=== PATIENT | male | born 1950 | race Caucasian/White ===

== ENCOUNTER → 2016-09-26 | Outpatient (CLI) | payer OTHER ==
[~2016-09-26] MED LIST: ASPEC81 PO; ATOR-24 PO; BETH10TA2 PO; CARB25TA12 PO; CHOL100010 PO; CYAN500S5 PO; FLNIN NAE; FLV1 PO; FRRS300 PO; MORP1INJ INJ; NRN600 PO; PRLSR20 PO; RANI300T2 PO; SNG10 PO; TIZA4CAP PO; VGR50 PO
--- NOTE | 2016-09-26 14:37 | DIAGNOSTIC IMAGING REPORT ---
THORACIC SPINE 3 VIEWS ROUTINE CLINICAL HISTORY: Persistent back pain. Post laminectomy. COMPARISON STUDY: Thoracic spine radiographs January 18, 2016. FINDINGS: Note is made of vertebral augmentations at the T9, T12 and L1 levels. Vertebral body height loss at these levels is similar to exam of January 18, 2016. Disc space narrowing at T7-T8 with apparent resection of the left eighth rib is again noted. No acute thoracic spine fracture or subluxation is present. The appearance is unchanged. IMPRESSION: 1. No acute thoracic spine fracture or subluxation. 2. No significant change since exam of January 18, 2016 status post T9, T12 and L1 vertebral augmentations. Electronically signed by: Mars Dlae M.D. 09/26/2016 2:35 PM Dictated Date/Time: 09/26/2016 2:33 PM
--- NOTE | 2016-09-26 14:56 | DIAGNOSTIC IMAGING REPORT ---
L-SPINE FLEX/EXT BENDING MIN 6 CLINICAL HISTORY: POST LAMINECTOMY pain COMPARISON STUDY: 07/27/2015 FINDINGS: Interval revision of the patient's laminectomy. There is evidence for laminectomy and fusion at L3-L4 with fixation hardware. Pre-existing laminectomy and fusion at L4-L5 is noted. No evidence for subluxation with the patient in flexion or extension. Evidence for vertebral plasties at T12 and L1. No evidence for compression deformity. IMPRESSION: Postoperative change as described. No evidence for subluxation with the patient in flexion or extension. Electronically signed by: Joesph Handy M.D. 09/26/2016 2:54 PM Dictated Date/Time: 09/26/2016 2:52 PM
--- NOTE | 2016-09-30 09:18 | CODING QUERY NO DIAGNOSIS ---
: 1950 TREATMENT RENDERED WITHOUT A DIAGNOSIS To promote full compliance with coding requirements relating to patient care, physician participation is requested in all cases of hcc coders uncertainty. Please assist us with providing a diagnosis/symptom for the test(s) below: A diagnosis/symptom was not documented on your Order. A valid diagnosis/symptom is required to bill all insurances. Please remember that we are unable to code a diagnosis of rule out, probable, possible, questionable, or suspected. Tests that require a diagnosis: DOS: 09/26/16 * Lumbar Spine X-ray DIAGNOSIS: * Thoracic Spine X-ray DIAGNOSIS: Provider Signature: Date: Thank you Kinsey Morrison Health Information Management Once completed, please kindly fax back to [phone] For questions please call [phone]
== END | disposition home or self-care (01) ==
LOC: C.RADBC 14:09
PROVIDERS: ATTEND Physician Assistant
DX: M54.5 Low back pain (principal); M54.16 Radiculopathy, lumbar region

== ENCOUNTER → 2016-11-11 | Outpatient (CLI) | payer OTHER ==
--- NOTE | 2016-11-11 13:21 | DIAGNOSTIC IMAGING REPORT ---
THORACIC SPINE COMBO CLINICAL HISTORY: THORACIC RADICULAR PAIN,LUMBAR POST-LAMINECTOMY COMPARISON STUDY: Conventional radiographic study dated 09/26/2016 FINDINGS: Imaging was performed before and after the administration of 9 cc of intravenous Gadavist. There are no areas of marrow replacement viewed as suspicious for metastatic disease. There is evidence of prior vertebral plasties the T9 T12 and L1 levels. There is partial fusion of the T7-T8 vertebra. No intrinsic thoracic cord lesions are visualized. No disc herniations are visualized. There is no spinal stenosis. There are no pathologically enhancing lesions. There are postsurgical changes the T8 level with evidence of a left-sided rib resection IMPRESSION: 1. No disc herniations identified 2. No intrinsic cord lesions identified 3. No evidence of pathologic enhancement 4. No evidence of spinal stenosis 5. Postsurgical change Electronically signed by: Bayron Davey M.D. 11/11/2016 1:20 PM Dictated Date/Time: 11/11/2016 1:12 PM
== END | disposition home or self-care (01) ==
LOC: C.MRIBC 11:47
PROVIDERS: ATTEND Anesthesiology
DX: M54.14 Radiculopathy, thoracic region (principal)

== ENCOUNTER → 2016-11-25 | Outpatient (CLI) | payer OTHER ==
[~2016-11-25] MED LIST changes: +GADAVIST IV PRN
--- NOTE | 2016-11-25 14:04 | DIAGNOSTIC IMAGING REPORT ---
MRI LUMBAR SPINE COMBINATION CLINICAL HISTORY: Low back pain. Post laminectomy syndrome. TECHNIQUE: Sagittal and axial T1, T2 and STIR images were obtained. COMPARISON STUDY: 08/04/2015 OBSERVATIONS: Post vertebroplasty marrow changes are present the T12 and L1 levels. There are no areas of marrow replacement viewed as suspicious for metastatic disease. L1-2: No disc protrusions or extrusions. No evidence of spinal canal or neural foraminal compromise. L2-3: No disc protrusions or extrusions. No evidence of spinal canal or neural foraminal compromise. L3-4: There are L3 and L4 pedicle screws. There are postsurgical changes of a discectomy and interbody fusion.. There is no evidence of significant spinal or foraminal stenosis. There is extensive postsurgical epidural fibrosis on the left and posteriorly L4-5: There are postsurgical changes of a posterior laminectomy, discectomy, interbody fusion.. There is a mild disc bulge.. There is no significant spinal or foraminal stenosis L5-S1: No disc protrusions or extrusions. No evidence of spinal canal or neural foraminal compromise. The conus medullaris and cauda equina appear normal. IMPRESSION: 1. Interval removal of the spinal fusion hardware at the L4-5 level. 2. Interval discectomy at the L3-4 level with evidence of posterior pedicle screw fusion 3. No evidence of recurrent disc herniation. No evidence of spinal stenosis 4. Interval development of extensive postsurgical epidural fibrosis at the L3-4 level. Electronically signed by: Bayron Davey M.D. 11/25/2016 2:02 PM Dictated Date/Time: 11/25/2016 1:48 PM
== END | disposition home or self-care (01) ==
LOC: C.MRIBC 12:30
PROVIDERS: ATTEND Anesthesiology
DX: M54.5 Low back pain (principal); M96.1 Postlaminectomy syndrome, not elsewhere classified

== ENCOUNTER 2017-06-25 09:51 | Inpatient (IN) | payer OTHER ==
[2017-06-12 14:43] VITALS: BMI 32.0
--- NOTE | 2017-06-12 15:28 | PAT Medication Instructions ---
Service Date Jun 12, 2017. Current Home Medication List Aspirin Enteric Coated (Ecotrin Or Generic *), 81 MG PO QPM Atorvastatin (Lipitor), 40 MG PO HS Bethanechol Chloride (Bethanechol Chloride), 10 MG PO QID Carbidopa/Levodopa (Sinemet 25MG/100MG), 1.5 TAB PO QID Cholecalciferol (Vitamin D), 1,000 INTER.UNIT PO NOON Cyanocobalamin (Vitamin B-12), 1 MG PO QPM Ferrous Sulfate (Iron Supplement *), 325 MG PO QAM Folic Acid (Folvite *), 1 MG PO NOON Gabapentin (Neurontin *), 1.5 TAB PO QID Montelukast (Singulair *), 10 MG PO HS Morphine Sulfate (Morphine Sulfate), 1 DOSE INJ UD Omeprazole (Prilosec), 20 MG PO BID Ranitidine (Zantac), 300 MG PO HS Tizanidine (Zanaflex), 4 MG PO TID PRN for Muscle Spasms Medication Instructions For Your Scheduled Surgery - Hold the following medications per your surgeon's instructions: Aspirin Enteric Coated (Ecotrin Or Generic *), 81 MG PO QPM - Continue as directed: Morphine Sulfate (Morphine Sulfate), 1 DOSE INJ UD - Hold the following medications the morning of surgery: Tizanidine (Zanaflex), 4 MG PO TID PRN for Muscle Spasms Ferrous Sulfate (Iron Supplement *), 325 MG PO QAM Folic Acid (Folvite *), 1 MG PO NOON Cholecalciferol (Vitamin D), 1,000 INTER.UNIT PO NOON - Take the following medications the morning of surgery with a sip of water: Carbidopa/Levodopa (Sinemet 25MG/100MG), 1.5 TAB PO QID Omeprazole (Prilosec), 20 MG PO BID Gabapentin (Neurontin *), 1.5 TAB PO QID - Take the following medications as scheduled the night before surgery: Tizanidine (Zanaflex), 4 MG PO TID PRN for Muscle Spasms (if needed) Atorvastatin (Lipitor), 40 MG PO HS Carbidopa/Levodopa (Sinemet 25MG/100MG), 1.5 TAB PO QID Ranitidine (Zantac), 300 MG PO HS Cyanocobalamin (Vitamin B-12), 1 MG PO QPM Omeprazole (Prilosec), 20 MG PO BID Gabapentin (Neurontin *), 1.5 TAB PO QID Montelukast (Singulair *), 10 MG PO HS If you have any questions please call us at [phone] or [phone] or [phone]
[2017-06-12 16:16] LABS: BASO % 0.2 %; BASO ABS # 0.01 K/uL (0-0.2); COMPLETE YES; HEMATOCRIT 36.6 % (42-52); LYMPH % 23.1 %; LYMPH ABS # 1.41 K/uL (1.2-3.4); MEAN CELL VOLUME 92.9 fL (80-100); MEAN CORPUSCULAR HEMOGLOBIN 30.7 pg (25-34); MEAN CORPUSCULAR HGB CONC 33.1 g/dl (32-36); MEAN PLATELET VOLUME 10.8 fL (7.4-10.4); MONO % 8.5 %; NEUT % 67.2 %; PLATELET COUNT 185 K/uL (130-400); RED BLOOD COUNT 3.94 M/uL (4.7-6.1)
[2017-06-12 16:25] LABS: BUN/CREATININE RATIO 21.8 (10-20); CALCIUM 9.2 mg/dl (8.5-10.1); CREATININE 1.3 mg/dl (0.60-1.40); POTASSIUM 4.5 mmol/L (3.5-5.1)
--- NOTE | 2017-06-12 16:25 | DIAGNOSTIC IMAGING REPORT ---
CHEST PREADMISSION(PA/LAT) CLINICAL HISTORY: Preoperative chest COMPARISON STUDY: No previous studies for comparison. FINDINGS: The cardiac and mediastinal contours are normal. There is no evidence of focal pulmonary consolidation. There is no evidence of failure. No pleural effusions are visualized.[ There are surgical clips in the left paraspinal region. There is evidence for multiple prior vertebroplasties. IMPRESSION: No active disease in the chest. Electronically signed by: Bayron Davey M.D. 06/12/2017 4:24 PM Dictated Date/Time: 06/12/2017 4:23 PM
[2017-06-12 16:28] LABS: URINE APPEARANCE CLEAR (CLEAR); URINE BILIRUBIN NEG (NEG); URINE COLOR DK YELLOW; URINE NITRITE NEG (NEG); URINE SPECIFIC GRAVITY 1.034 (1.000-1.030); UROBILINOGEN NEG (NEG); ZZUR CULT IF INDIC CLEAN CATCH NO
[2017-06-12 16:29] LABS: MANUAL MICROSCOPIC REQUIRED? NO; REVIEW REQ? NO
[2017-06-25] VITALS (8 sets, daily range): BP systolic 120–174; BP diastolic 68–90; PULSE 66–81; TEMP 36.5–36.8; O2SAT 94–100; Ht 170.2 cm; Wt 94.6 kg
[~2017-06-25] VITALS: Ht 170.2 cm; Wt 94.6 kg
[~2017-06-25 09:51] MED LIST changes: +ATROPINE SULFATE 0.1 MG/ML 5ML SYR IV PRN; -BETH10TA2 PO; +CEFAZOLIN 2000 MG/60 ML D5W IV SCH; +EpHEDrine SULFATE INJ 50 MG/ML AMP IV PRN; +FENTANYL CITRATE INJ 50 MCG/1 ML 2 ML VIAL IV PRN; -FLNIN NAE; -GADAVIST IV PRN; +LACTATED RINGER'S 1000ML 1,000 ML IV SCH; +ONDANSETRON INJ 2 MG/ML 2 ML VIAL IV PRN; -VGR50 PO
--- NOTE | 2017-06-25 11:51 | History & Physical Bridge Note ---
H&P Re-Evaluation Bridge Note: I have examined the patient, reviewed the History & Physical and in the interval since the performance of the History & Physical I have noted the following changes of clinical significance: No changes noted
--- NOTE | 2017-06-25 11:52 | History and Physical ---
History & Physical Date Jun 25, 2017. Chief Complaint Chronic back and leg pain History of Present Illness The patient is a 66 year old male with complaints of chronic back and leg pain Past Medical/Surgical History Medical Problems: (1) HNP (herniated nucleus pulposus), lumbar Additional History Hepatic Disease: No Endocrine Disorder: No Kidney Disease: No Hypertension: No Heart Disease: No Bleeding Tendencies: No Infectious Diseases: No Allergies Coded Allergies: Oxybutynin (Verified Allergy, Severe, THROAT SWELLING, 06/25/17) Tetracycline (Verified Allergy, Severe, THROAT SWELLING, 06/25/17) Amoxicillin (Verified Adverse Reaction, Mild, NAUSEATED, 06/25/17) Clavulanic Acid (Verified Adverse Reaction, Mild, NAUSEA, 06/25/17) Home Medications Scheduled Aspirin Enteric Coated (Ecotrin Or Generic *), 81 MG PO QPM Atorvastatin (Lipitor), 40 MG PO HS Carbidopa/Levodopa (Sinemet 25MG/100MG), 1.5 TAB PO QID Cholecalciferol (Vitamin D), 1,000 INTER.UNIT PO NOON Cyanocobalamin (Vitamin B-12), 1 MG PO QPM Ferrous Sulfate (Iron Supplement *), 325 MG PO QAM Folic Acid (Folvite *), 1 MG PO NOON Gabapentin (Neurontin *), 1.5 TAB PO QID Montelukast (Singulair *), 10 MG PO HS Morphine Sulfate (Morphine Sulfate), 1 DOSE INJ UD Omeprazole (Prilosec), 20 MG PO BID Ranitidine (Zantac), 300 MG PO HS Scheduled PRN Tizanidine (Zanaflex), 4 MG PO TID PRN for Muscle Spasms Physical Examination Skin: warm/dry, no rash Eyes: normal inspection, EOMI, sclerae normal ENT: normal ENT inspection, pharynx normal Head: normocephalic, atraumatic Neck: supple, no adenopathy, trachea midline Respiratory/Chest: lungs clear, normal breath sounds, no respiratory distress Cardiovascular: regular rate, rhythm, no edema, no murmur Abdomen / GI: normal bowel sounds, non tender Back: normal inspection Extremities: normal inspection, normal range of motion Neurologic/Psych: no motor/sensory deficits, alert, normal reflexes, oriented x 3 Diagnosis Chronic back and leg pain Plan of Treatment Spinal cord stimulator trial
[2017-06-25] MEDS ORDERED: MIDAZOLAM HCL 1 MG/ML 2ML VIAL ONE (11:53)
[2017-06-25] MEDS ORDERED: FENTANYL CITRATE INJ 50 MCG/1 ML 2 ML VIAL ONE ×2 (11:53→14:00)
[2017-06-25] MEDS ORDERED: BACITRACIN 50000 UNIT VIAL ONE (12:10)
[2017-06-25] MEDS ORDERED: BUPIVACAINE/EPINEPHRINE 0.5% MPF 1:200,000 30 ML VIAL ONE (12:10)
[2017-06-25] MEDS ORDERED: EpHEDrine SULFATE INJ 50 MG/ML AMP ONE (13:02)
[2017-06-25] MEDS ORDERED: GLYCOPYRROLATE INJ 0.2 MG/ML VIAL ONE (13:15)
[2017-06-25] MEDS ORDERED: NEOSTIGMINE METHYLSULFATE 1 MG/ML 10ML VIAL ONE (13:15)
[2017-06-25] MEDS ORDERED: PROPOFOL IV EMULSION 10 MG/ML 20 ML VIAL IV ONE (13:15)
[2017-06-25] MEDS ORDERED: LIDOCAINE HCL 2% 2 ML VIAL (20MG/ML) ONE (13:15)
[2017-06-25] MEDS ORDERED: HYDROmorphone INJ 2 MG/ML SYR/VIAL ONE (13:16)
--- NOTE | 2017-06-25 13:24 | [facility] Operative Report ---
Operative Report Operative Date Jun 25, 2017. Pre-Operative Diagnosis Chronic back and leg pain Post-Operative Diagnosis Chronic back and leg pain Procedure(s) Performed #1 T10 laminotomy. #2 implantation of 16-lead dorsal column stimulator paddle with attachment to external leads. Surgeon Dr. Lewis Ayala Ice Cream Dispenser Surgeon(s) Bronwyn Carcamo PA-C Findings None Specimens none per surgeon Description of Procedure Patient was met with preoperatively case discussed all questions are dressed. That point patient was taken back to the operative suite after undergoing intubation placed in a prone position the Josh table top Fabricio frame all bony promises well-padded eyes inspected to ensure no external pressure placed upon them. This point the thoracal lumbar spine was prepped and draped in the normal sterile fashion. The assistance of fluoroscopy identified the T10-T11 interlaminar space. Sharp dissection with the assistance of Bovie cautery was performed onto an exposing this region. Self-retaining retractors placed. Then performed a midline laminotomy of T10. This large enough to place the paddle lead proximally. We placed it between the T9 and T10 spaces. It was centered perfectly. We then attached external leads and with the trocar placed into the left flank. They were tested and determined to be operational. Subsequently incision site was copiously irrigated and closed with 1 Vicryl in the fascia 2-0 Vicryl subcutaneously for Monocryl for final skin closure Steri- Strip sterile dressing placed. Patient we can take PACU stable condition. Please note Bronwyn William was present at the entire procedure involved in patient positioning complex portions of the surgery and final skin closure. I attest to the content of the Intraoperative Record and any orders documented therein. Any exceptions are noted below.
[2017-06-25] MEDS ORDERED: METOCLOPRAMIDE HCL INJ 5 MG/ML 2 ML VIAL IV PRN (13:30)
[2017-06-25] MEDS ORDERED: ACETAMINOPHEN IV 100 ML IV PRN (13:30)
[2017-06-25] MEDS ORDERED: BISACODYL 10 MG SUPP PR PRN (13:30)
[2017-06-25] MEDS ORDERED: DO NOT ADMINISTER FLU VACCINE PRN ×3 (13:30)
[2017-06-25] MEDS ORDERED: NALOXONE HCL 0.4 MG/1 ML VIAL/CARP IV PRN (13:30)
[2017-06-25] MEDS ORDERED: hydrOXYzine HCL 25 MG TAB PO PRN (13:30)
[2017-06-25] MEDS ORDERED: LORAZEPAM INJ 0.5 MG in SYRINGE 0 ML IV PRN (13:30)
[2017-06-25] MEDS ORDERED: SOD PHOSPHATE/SOD BIPHOSPHATE ENEMA 132 ML BTL PR PRN (13:30)
[2017-06-25] MEDS ORDERED: PROMETHAZINE HCL INJ 12.5 MG in SODIUM CHLORIDE 0.9% 50ML 50 ML IV PRN (13:30)
[2017-06-25] MEDS ORDERED: FAMOTIDINE 20 MG TAB PO PRN (13:30)
[2017-06-25] MEDS ORDERED: DO NOT ADMINISTER PNEUMOCOCCAL VACCINE PRN ×2 (13:30)
[2017-06-25] MEDS ORDERED: ONDANSETRON INJ 2 MG/ML 2 ML VIAL IV PRN (13:30)
[2017-06-25] MEDS ORDERED: DC PCA PRN (13:30)
[2017-06-25] MEDS ORDERED: MAGNESIUM HYDROXIDE SUSP 30 ML UDC PO PRN (13:30)
[2017-06-25] MEDS ORDERED: LORAZEPAM 0.5 MG TAB PO PRN (13:30)
[2017-06-25] MEDS ORDERED: ACETAMINOPHEN 500 MG TAB PO PRN (13:30)
[2017-06-25] MEDS ORDERED: ALUMINUM/MAGNESIUM SUSP 30 ML UDC PO PRN (13:30)
--- NOTE | 2017-06-25 13:35 | DIAGNOSTIC IMAGING REPORT ---
LUMBAR SPINE, INTRAOPERATIVE FLUOROSCOPY HISTORY: Spinal cord stimulator placement. FLUOROSCOPY TIME: 6 seconds. FINDINGS: Intraoperative fluoroscopy was provided for the lumbar spine. A single fluoroscopic spot image of the lower thoracic spine demonstrates multiple vertebroplasty within the lower thoracic and upper lumbar spine as well as a spinal stimulator device. The leads terminate at the expected location of the T9 vertebral body. IMPRESSION: Fluoroscopy provided for a spinal cord stimulator placement. Electronically signed by: Adam Del Angel M.D. 06/25/2017 1:34 PM Dictated Date/Time: 06/25/2017 1:33 PM
[2017-06-25] MEDS ORDERED: DEXAMETHASONE SOD INJ 4 MG/ML VIAL ONE (13:38)
[2017-06-25] MEDS ORDERED: EpHEDrine SULFATE 50MG/5ML SYR ONE (13:38)
[2017-06-25] MEDS ORDERED: ONDANSETRON INJ 2 MG/ML 2 ML VIAL ONE (13:38)
[2017-06-25] MEDS ORDERED: CARBIDOPA/LEVODOPA 25/100MG TAB PO ONE (14:00)
--- NOTE | 2017-06-25 14:10 | Anesthesiology Progress Note ---
Anesthesia Post Op Note Date & Time Jun 25, 2017 at 14:08 Vital Signs Pain Intensity: 6 Vital Signs Past 12 Hours Date Time Temp Pulse Resp B/P (MAP) Pulse Ox O2 Delivery O2 Flow Rate FiO2 06/25/17 13:50 81 16 151/75 99 Oxymask 8 06/25/17 13:40 81 16 164/71 99 Oxymask 8 06/25/17 13:31 36.4 86 16 148/71 100 Oxymask 8 06/25/17 10:30 36.7 74 18 174/81 97 Room Air Notes Mental Status: alert / awake / arousable, participated in evaluation Pt Amnestic to Procedure: Yes Nausea / Vomiting: adequately controlled Pain: adequately controlled Airway Patency, RR, SpO2: stable & adequate BP & HR: stable & adequate Hydration State: stable & adequate Anesthetic Complications: no major complications apparent Anesthetic Complications: pt to get next dose of sinemet prior to leaving PACU
[2017-06-25] MEDS ORDERED: HYDROmorphone INJ 1 MG/ML SYR IV PRN (16:30)
[2017-06-25] MEDS: LACTATED RINGER'S 1000ML 1,000 ML IV SCH ×2 (16:55→17:59)
[2017-06-25] MEDS: DEXAMETHASONE INJ 6 MG in SYRINGE 0 ML IV SCH ×2 (17:03→23:12)
[2017-06-25] MEDS: CARBIDOPA/LEVODOPA 25/100MG TAB PO SCH ×2 (17:20→22:00)
[2017-06-25] MEDS: GABAPENTIN 600 MG TAB PO SCH ×2 (17:20→22:01)
[2017-06-25] MEDS: CEFAZOLIN IV 2,000 MG in DEXTROSE 5% 50ML 50 ML IV SCH (19:56)
[2017-06-25] MEDS: OXYCODONE HCL IR 5 MG TAB (IMMEDIATE RELEASE) PO PRN (20:17)
[2017-06-25] MEDS: RANITIDINE HCL 150 MG TAB PO SCH (22:01)
[2017-06-25] MEDS: MONTELUKAST SOD 10 MG TAB PO SCH (22:01)
[2017-06-25] MEDS: PANTOprazole SOD 40 MG TAB PO SCH (22:02)
[2017-06-25] MEDS: ASPIRIN 81 MG ECTAB PO SCH (22:02)
[2017-06-25] MEDS: DOCUSATE SODIUM/SENNA 50/8.6MG TAB PO SCH (22:02)
[2017-06-25] MEDS: ATORVASTATIN 20 MG TAB PO SCH (22:02)
[2017-06-26] MEDS: OXYCODONE HCL IR 5 MG TAB (IMMEDIATE RELEASE) PO PRN ×4 (00:43→20:50)
[2017-06-26] MEDS: LACTATED RINGER'S 1000ML 1,000 ML IV SCH (01:31)
[2017-06-26 03:35] VITALS: BP 111/68; PULSE 60; TEMP 36.8; O2SAT 98
[2017-06-26] MEDS: CEFAZOLIN IV 2,000 MG in DEXTROSE 5% 50ML 50 ML IV SCH (03:39)
[2017-06-26] MEDS ORDERED: OXYCODONE HCL IR 5 MG TAB (IMMEDIATE RELEASE) PO PRN (06:00)
[2017-06-26] MEDS ORDERED: NURSING VERBAL MED ORDER ONE (06:00)
[2017-06-26 06:09] LABS: COMPLETE YES; HEMATOCRIT 33.9 % (42-52); IG% 0.3 %; LYMPH % 6.1 %; LYMPH ABS # 0.58 K/uL (1.2-3.4); MEAN CELL VOLUME 91.6 fL (80-100); MEAN CORPUSCULAR HEMOGLOBIN 30.3 pg (25-34); MEAN PLATELET VOLUME 10.6 fL (7.4-10.4); MONO % 3.5 %; NEUT % 90.1 %; PLATELET COUNT 180 K/uL (130-400); WHITE BLOOD COUNT 9.53 K/uL (4.8-10.8)
[2017-06-26] MEDS: DEXAMETHASONE INJ 6 MG in SYRINGE 0 ML IV SCH (06:34)
[2017-06-26 06:39] LABS: BUN/CREATININE RATIO 11.4 (10-20); CALCIUM 9.1 mg/dl (8.5-10.1); CREATININE 1.5 mg/dl (0.60-1.40); POTASSIUM 4.1 mmol/L (3.5-5.1)
[2017-06-26 06:52] VITALS: BP 134/72; PULSE 61; TEMP 36.9; O2SAT 97
[2017-06-26] MEDS: GABAPENTIN 600 MG TAB PO SCH ×4 (08:51→20:51)
[2017-06-26] MEDS: FERROUS SULFATE 325 MG TAB PO SCH (08:51)
[2017-06-26] MEDS: CARBIDOPA/LEVODOPA 25/100MG TAB PO SCH ×4 (08:52→20:52)
[2017-06-26] MEDS: PANTOprazole SOD 40 MG TAB PO SCH ×2 (08:52→20:51)
--- NOTE | 2017-06-26 09:00 | Progress Note ---
Progress Note Date of Service Jun 26, 2017. Progress Note Patient's pain is well-controlled. He noted significant improvement of his leg pain with the stimulator in place. At this time we will plan for nothing by mouth after midnight in permanent placement of stimulator tomorrow.
--- NOTE | 2017-06-26 10:37 | Anesthesiology Progress Note ---
Anesthesia Post Op Note Date & Time Jun 26, 2017 at 10:36 Vital Signs Pain Intensity: 7.0 Vital Signs Past 12 Hours Date Time Temp Pulse Resp B/P (MAP) Pulse Ox O2 Delivery O2 Flow Rate FiO2 06/26/17 08:15 Room Air 06/26/17 06:52 36.9 61 18 134/72 (92) 97 06/26/17 03:35 36.8 60 16 111/68 (82) 98 Room Air 06/25/17 23:50 BiPAP 3.5 06/25/17 22:44 36.6 68 16 120/68 (85) 94 Room Air Notes Mental Status: alert / awake / arousable, participated in evaluation Pt Amnestic to Procedure: Yes Nausea / Vomiting: adequately controlled Pain: adequately controlled Airway Patency, RR, SpO2: stable & adequate BP & HR: stable & adequate Hydration State: stable & adequate Anesthetic Complications: no major complications apparent
[2017-06-26 11:25] VITALS: BP 125/69; PULSE 57; TEMP 36.8; O2SAT 96
--- NOTE | 2017-06-26 12:36 | Anesthesiology Progress Note ---
Anesthesia Progress Note Date of Service Jun 26, 2017. Progress Notes The patient is a 66 y/o male scheduled for spinal cord stimulator implant tomorrow with Dr. Ayala. He had the same procedure on 06/25/17 for failed back syndrome. A Glidescope #3 was used with a good view. He was easy to mask ventilate. He had previously had a Glidescope #4 and was a more difficult view. The patient does have a residual sore throat from the intubation. He otherwise tolerated the procedure well. Other PMH includes sleep apnea on BiPap , HTN, dyslipidemia, Prinzmetal's angina, GERD, arthritis, mild creatinine elevation, anemia, urinary incontinence, and obesity. Significant labs from today are a hgb of 11.2 and Cr of 1.5. On exam the patient has a horse voice. He is a MP 4 with a small oral opening. Lungs are clear and heart is RRR. The patient is an ASA 3. He was consented for general anesthesia. He was counseled to remain NPO after midnight except for sips of water with pills.
[2017-06-26] MEDS: HYDROmorphone INJ 0.5 MG/0.5 ML SYR IV PRN (12:53)
[2017-06-26 15:09] VITALS: BP 158/75; PULSE 60; TEMP 37.3; O2SAT 98
[2017-06-26] MEDS: RANITIDINE HCL 150 MG TAB PO SCH (21:14)
[2017-06-26] MEDS: ATORVASTATIN 20 MG TAB PO SCH (21:14)
[2017-06-26] MEDS: DOCUSATE SODIUM/SENNA 50/8.6MG TAB PO SCH (21:14)
[2017-06-26] MEDS: ASPIRIN 81 MG ECTAB PO SCH (21:15)
[2017-06-26] MEDS: MONTELUKAST SOD 10 MG TAB PO SCH (21:15)
[2017-06-26 22:51] VITALS: BP 106/59; PULSE 63; TEMP 36.3; O2SAT 95
[2017-06-27] VITALS (7 sets, daily range): BP systolic 132–165; BP diastolic 61–77; PULSE 60–70; TEMP 36.4–36.6; O2SAT 93–98
[2017-06-27] MEDS: POLYETHYLENE (MIRALAX) 17 GM PACK PO SCH ×2 (05:28→12:39)
[2017-06-27] MEDS: PANTOprazole SOD 40 MG TAB PO SCH (07:04)
[2017-06-27] MEDS: GABAPENTIN 600 MG TAB PO SCH ×2 (07:04→14:17)
[2017-06-27] MEDS: FERROUS SULFATE 325 MG TAB PO SCH (07:04)
[2017-06-27] MEDS: CARBIDOPA/LEVODOPA 25/100MG TAB PO SCH ×2 (07:04→14:08)
[2017-06-27] MEDS ORDERED: MIDAZOLAM HCL 1 MG/ML 2ML VIAL ONE (10:12)
[2017-06-27] MEDS ORDERED: FENTANYL CITRATE INJ 50 MCG/1 ML 2 ML VIAL ONE (10:12)
[2017-06-27] MEDS ORDERED: ATROPINE SULFATE 0.1 MG/ML 5ML SYR IV PRN (10:15)
[2017-06-27] MEDS ORDERED: HYDROmorphone INJ 2 MG/ML SYR/VIAL IV PRN (10:15)
[2017-06-27] MEDS ORDERED: ONDANSETRON INJ 2 MG/ML 2 ML VIAL IV PRN (10:15)
[2017-06-27] MEDS ORDERED: NEOSTIGMINE METHYLSULFATE 1 MG/ML 10ML VIAL ONE ×2 (10:17→11:18)
[2017-06-27] MEDS ORDERED: ONDANSETRON INJ 2 MG/ML 2 ML VIAL ONE ×2 (10:17→11:18)
[2017-06-27] MEDS ORDERED: GLYCOPYRROLATE INJ 0.2 MG/ML VIAL ONE ×2 (10:17→11:18)
[2017-06-27] MEDS ORDERED: BUPIVACAINE/EPINEPHRINE 0.5% MPF 1:200,000 30 ML VIAL ONE (10:43)
[2017-06-27] MEDS ORDERED: BACITRACIN 50000 UNIT VIAL ONE (10:43)
[2017-06-27] MEDS ORDERED: CEFAZOLIN IV 2,000 MG/60 ML D5W IV ONE (10:46)
[2017-06-27] MEDS ORDERED: LIDOCAINE HCL 2% 2 ML VIAL (20MG/ML) ONE (11:18)
[2017-06-27] MEDS ORDERED: ROCURONIUM BROMIDE 10 MG/ML 5 ML VIAL IV ONE (11:18)
[2017-06-27] MEDS ORDERED: EpHEDrine SULFATE 50MG/5ML SYR ONE (11:18)
[2017-06-27] MEDS ORDERED: DEXAMETHASONE SOD INJ 4 MG/ML VIAL ONE (11:18)
[2017-06-27] MEDS ORDERED: PROPOFOL IV EMULSION 10 MG/ML 20 ML VIAL IV ONE (11:18)
[2017-06-27] MEDS ORDERED: KETOROLAC TROMETHAMINE 30 MG/ML VIAL ONE (11:18)
[2017-06-27] MEDS ORDERED: RXC5 PO (11:24)
--- NOTE | 2017-06-27 11:25 | Discharge Instructions ---
Discharge Instructions Date of Service Jun 27, 2017. Admission Reason for Admission: Chronic Back Pain Greater Than 3 Months Duration Discharge Discharge Diagnosis / Problem: chronic back and leg pain Discharge Goals Goal(s): Improve function Activity Recommendations Activity Limitations: per Instructions/Follow-up section . Instructions / Follow-Up Instructions / Follow-Up ACTIVITY RECOMMENDATIONS: SELF CARE INSTRUCTIONS AFTER A LAMINECTOMY 1. No prolonged sitting (less than 30 minutes for the first 3 weeks after surgery). 2. No bending, lifting more than 5 pounds, or twisting (roll like a log when turning in bed). 3. You may shower 3 days after surgery if no drainage from wound. Thoroughly dry wound. Do not soak in the tub. 4. Please walk as much as you can for exercise. Gradually increase the distance that you walk as your endurance increases. 5. You may drive in 7-10 days if you are comfortable and no longer requiring pain medications. SPECIAL CARE INSTRUCTIONS: VERY IMPORTANT TO READ AND REVIEW A. Your surgical incision has been closed with a cosmetic suture under the skin that will dissolve in about 6 weeks. In 14 days, you can use a pair of clean scissors and cut the suture that is left outside of the skin at the ends of your incision. B. Complications are uncommon, but please contact us if you have any signs or symptoms of: 1. wound infection (fever higher than 102.5 degrees F, redness, separation of wound, drainage, or increasing pain from the incision) 2. blood clots in legs (pain, swelling, redness and warmth in legs) 3. urinary tract infection (fever higher than 102.5 degrees, burning upon urination or increased frequency of urination) 4. nerve problems (inability to walk on your toes or heels, numbness, loss of bowel or bladder control) 5. any other symptoms that concern you. C. Please call the office at if you have any concerns or questions about your operation or recovery. MANAGING PAIN AFTER SPINAL SURGERY 1. Narcotic medication is intended for short-term use and will be provided for surgical pain. Surgical pain usually lasts for a period of 4-6 weeks. Narcotic medication includes Percocet, Vicodin, Darvocet, Tylenol #3 or Lortab. 2. Longer-term pain is more appropriately treated with non-narcotic medication such as Tylenol ES. 3. Muscle spasm is not appropriately treated with narcotics. Muscle relaxers such as Soma, Flexeril or Skelaxin can be used along with Tylenol ES. 4. Remember that we all live with some "aches and pains". This is not unusual or uncommon after an injury or as we get older. 5. We will provide appropriate medication within the normal guidelines of their prescribed use. We will also be very cautious and aware of potential abuse and extended duration of patients' medication needs. 6. Please allow 2-3 days to process refills. Prescriptions will not be mailed but must be picked up at the office. FOLLOW UP VISIT: Keep your scheduled follow-up appointment. Any questions, please call the office at . Current Hospital Diet Patient's current hospital diet: Regular Diet Discharge Diet Recommended Diet: Regular Diet Procedures Procedures Performed: #1 T10 laminotomy. #2 implantation of 16-lead dorsal column stimulator paddle with attachment to external leads. Pending Studies Studies pending at discharge: no Medical Emergencies . Who to Call and When: Medical Emergencies: If at any time you feel your situation is an emergency, please call 911 immediately. . Non-Emergent Contact Non-Emergency issues call your: Primary Care Provider . "Provider Documentation" section prepared by Lewis Ayala. . VTE Core Measure Inpt VTE Proph given/why not?: Tima Corral, SCD's
--- NOTE | 2017-06-27 11:30 | [facility] Operative Report ---
Operative Report Operative Date Jun 27, 2017. Pre-Operative Diagnosis Chronic back and leg pain Post-Operative Diagnosis Chronic back and leg pain Procedure(s) Performed #1 removal of temporary spinal cord stimulator leads. #2 implantation of spinal cord stimulator battery with testing. Surgeon Dr. Lewis Ayala Medical Apparatus Model Maker Surgeon(s) Sha Hubbard PA-C Estimated Blood Loss 20 ML Findings None Specimens none per surgeon Description of Procedure Patient was met with preoperatively case discussed all questions are dressed. After informed consent patient was taken to the operative suite underwent intubation placed in a prone position on the Josh table on top Fabricio frame. The thoracal lumbar spine was prepped and draped in normal sterile fashion. I then opened up the previous laminotomy site at T10. Removed the temporary leads. These were detached and removed. Then created a small pocket over the right flank large enough to hold the battery. A trocar was then used to pass the leads from the laminotomy site to the battery. There were subsequently connected then tested and determined to be functioning properly. The battery was then buried. Incision was copiously irrigated and closed the subcutaneous Vicryl and Monocryl for final skin closure. Steri-Strips sterile dressing was placed. Patient we can take PACU stable condition. Please note Alfredo record was present at the entire procedure involved in patient positioning complex portions of the surgery and final skin closure. I attest to the content of the Intraoperative Record and any orders documented therein. Any exceptions are noted below.
[2017-06-27] MEDS ORDERED: HYDROmorphone INJ 2 MG/ML SYR/VIAL ONE (11:34)
--- NOTE | 2017-06-27 11:41 | Discharge Summary ---
Orthopedic Discharge Summary Admission Date/Reason Jun 25, 2017 at 12:00 Chronic Back Pain Greater Than 3 Months Duration. Discharge Date/Disposition Jun 27, 2017 Home Diagnosis Principal Diagnosis: Chronic back and leg pain Admission Physical Exam As per Admitting History & Physical. Hospital Course Patient underwent spinal cord stimulator trial on Friday. He tolerated this well. Postoperatively he was obtaining significant improvement of his back and leg symptoms subsequently we elected to undergo permanent implantation on Friday. Patient tolerated the procedure well and was socially discharge home. Discharge orders and instructions found on the chart for further review. Discharge Instructions Please refer to the electronic Patient Visit Report (Discharge Instructions) for additional information.
--- NOTE | 2017-06-27 13:06 | Anesthesiology Progress Note ---
Anesthesia Post Op Note Date & Time Jun 27, 2017 at 13:06 Vital Signs Pain Intensity: 0 Vital Signs Past 12 Hours Date Time Temp Pulse Resp B/P (MAP) Pulse Ox O2 Delivery O2 Flow Rate FiO2 06/27/17 12:59 70 16 133/61 (85) 97 Room Air 06/27/17 12:30 36.4 62 16 151/76 (101) 98 Room Air 06/27/17 12:25 61 13 121/52 97 Room Air 06/27/17 12:15 36.2 58 14 118/54 96 Room Air 06/27/17 12:05 60 12 120/53 100 Room Air 06/27/17 11:55 63 13 123/54 100 Oxymask 10 06/27/17 11:46 36.2 75 14 119/53 100 Oxymask 10 06/27/17 07:15 Room Air 06/27/17 07:06 36.6 63 16 150/75 (100) 95 Room Air Notes Mental Status: alert / awake / arousable, participated in evaluation Pt Amnestic to Procedure: Yes Nausea / Vomiting: adequately controlled Pain: adequately controlled Airway Patency, RR, SpO2: stable & adequate BP & HR: stable & adequate Hydration State: stable & adequate Anesthetic Complications: no major complications apparent
[2017-06-27] MEDS: OXYCODONE HCL IR 5 MG TAB (IMMEDIATE RELEASE) PO PRN (13:36)
[2017-06-27] MEDS: HYDROmorphone INJ 0.5 MG/0.5 ML SYR IV PRN (15:19)
== END 2017-06-27 16:25 | disposition home or self-care (01) | DRG 520 ==
LOC: C.ACU 09:51 → C.3E 12:00 → ENRESERV 14:32
PROVIDERS: ADMIT Orthopaedic Surgery Orthopaedic Surgery of the Spine; ATTEND Orthopaedic Surgery Orthopaedic Surgery of the Spine
PROC: 00HU0MZ Insertion of Neurostimulator Lead into Spinal Canal, Open Approach (ICD-10-PCS; principal; 2017-06-27 09:45)
DX: M51.26 Other intervertebral disc displacement, lumbar region (principal); G89.29 Other chronic pain; Z79.82 Long term (current) use of aspirin